=== PATIENT | female | born 1960 ===

== ENCOUNTER 2019-02-04 08:00 | Day surgery (SDC) | payer OTHER ==
[2019-02-04] MEDS ORDERED: NEXIUM 24HR20 MG PO (13:26)
== END 2019-02-04 13:35 | disposition home or self-care (01) ==
LOC: AMB-ENDOS 08:00 → EDBD 08:30 → AMB-ENDOS 13:35
DX: K31.7 Polyp of stomach and duodenum (principal); K29.60 Other gastritis without bleeding; K44.9 Diaphragmatic hernia without obstruction or gangrene